=== PATIENT | female | born 1970 | race Caucasian/White ===

== ENCOUNTER 2017-12-22 16:33 | Emergency (ER) | payer SELFPAY ==
[~2017-12-22] VITALS: Ht 165.1 cm; Wt 56.8 kg
[2017-12-22] MEDS ORDERED: CEPHALEXIN500 M1 PO (16:55)
[2017-12-22 17:47] VITALS: BP 161/114
== END 2017-12-22 18:00 | disposition home or self-care (01) | DRG 605 ==
LOC: ED 16:33
DX: S91.331A Puncture wound without foreign body, right foot, initial encounter (principal); W31.1XXA Contact with metalworking machines, initial encounter; Y93.89 Activity, other specified; Y92.008 Other place in unspecified non-institutional (private) residence as the place of occurrence of the external cause

== ENCOUNTER 2020-10-23 12:00 | Emergency (ER) | payer SELFPAY ==
[~2020-10-23] VITALS: Ht 165.1 cm; Wt 62.0 kg
[~2020-10-23 12:00] MED LIST: CEPHALEXIN500 M1 PO
[2020-10-23 13:13] LABS: HEMATOCRIT 40.8 % (37.0-47.0); HEMOGLOBIN 13.9 g/dl (12.0-16.0); IMMATURE GRANULOCYTES 0.3 % (0.0-5.0); MEAN CELL VOLUME 98.8 fL CALC (80.0-100.0); MEAN CORPUSCULAR HGB 33.7 pG CALC (26.0-32.0); MEAN CORPUSCULAR HGB CONC 34.1 g/dL CAL (32.0-36.0); NEUT# 12.63 thou/uL (2.00-7.15); RED BLOOD COUNT 4.13 mill/uL (4.20-5.60); RED CELL DISTRI WIDTH 13.5 % (11.5-15.5)
[2020-10-23 13:30] LABS: ALBUMIN 4.6 g/dL (3.2-5.0); ALKALINE PHOSPHATASE 62 u/l (38-126); ANION GAP 12 (6-22 (CALC)); BILIRUBIN, TOTAL 0.7 mg/dL (0.0-1.4); BUN 10 mg/dL (7-17); BUN/CREATININE RATIO 14 (12-20 (CALC)); CARBON DIOXIDE 26 mmol/l (22-30); CHLORIDE 101 mmol/l (95-108); CREATININE 0.7 mg/dL (0.5-1.0); GFR > 60 ML/MIN (>=60 (CALC)); GFR FOR AFR.AMER. > 60 ML/MIN (>=60 (CALC)); POTASSIUM 3.3 mmol/l (3.5-5.1); SGOT/AST 46 u/l (14-36); SODIUM 136 mmol/l (137-146); TOTAL PROTEIN 8.3 g/dL (6.3-8.2)
[2020-10-23 13:41] LABS: MYOGLOBIN 40 ng/mL (0 - 62)
[2020-10-23] MEDS ORDERED: BENADRYL ALLERG25 MG PO (14:35)
[2020-10-23] MEDS ORDERED: MEDDOSEPAK PO (14:35)
[2020-10-23] MEDS ORDERED: MECLIZINE25 MG PO (14:35)
[2020-10-23] MEDS ORDERED: ONDANSETRON4 MG PO (14:35)
[2020-10-23 15:05] VITALS: BP 118/63
== END 2020-10-23 15:20 | disposition home or self-care (01) | DRG 149 ==
LOC: ED 12:00
PROVIDERS: Emergency Medicine
DX: R42 Dizziness and giddiness (principal); F17.200 Nicotine dependence, unspecified, uncomplicated